=== PATIENT | female | born 1995 | race Caucasian/White ===

== ENCOUNTER 2019-05-17 00:10 | Emergency (ER) | payer BC ==
[~2019-05-17] VITALS: Ht 154.9 cm; Wt 47.7 kg
[2019-05-17 00:23] VITALS: TEMP 97
[2019-05-17 02:15] VITALS: BP 122/84; PULSE 80
== END 2019-05-17 02:15 | disposition home or self-care (01) ==
LOC: COL.ER 00:10
DX: R00.2 Palpitations (principal); F90.9 Attention-deficit hyperactivity disorder, unspecified type